=== PATIENT | male | born 1960 | race Caucasian/White ===

== ENCOUNTER 2019-03-10 08:29 | Day surgery (SDC) | payer BC, SELFPAY ==
[2019-03-09 09:29] VITALS: BMI 24.3
[2019-03-10] VITALS (7 sets, daily range): BP systolic 113–156; BP diastolic 73–99; PULSE 54–71; RESP 18; TEMP 36.3–36.5; O2SAT 96–98
--- NOTE | 2019-03-10 09:21 | ANES.PREANES ---
Pre-Anesthetic Assessment Pre-Anesthetic Assessment: Height/Weight: Height 1.78 m Weight 77.111 kg Proposed Procedure: Operation Date: 03/10/19 10:00 Proposed Procedures p Laparoscopic Adhesiolysis(Not Applicable) - Jae Mcclain MD Last intake: Intake Last Liquid Date 03/09/19 Last Liquid Time 21:00 Last Solid Date 03/09/19 Last Solid Time 21:00 Social: Social History: Alcohol (occ) and Tobacco (chews) Exam: Pre-Anes Outpt Exam: alert, oriented x 3, clear to auscultation bilaterally and regular rate & rhythm Airway: Submandibular: WNL Cervical ROM: WNL MP: 1 Pulmonary: Pulmonary: None reported CV/HEM: CV/HEM: None reported : : None reported Hepatic: Hepatic: None reported GI: GI: None reported Metabolic: Metabolic: None reported Musc/skel: Musc/skel: None reported Neuropsych: Neuropsych: None reported Anesthetic Plan: ASA status: II Anesthesia: Anesthesia Evaluation and General PFSH Anesthesia PFSH: Family History (Updated 03/09/19 @ 09:28 by Booker Azevedo LPN) Other Breast cancer Cancer Heart disease Hypertension Data Anesthesia Cardiac Studies: No Data to Display
[2019-03-10] MEDS: sodium chloride 0.9% 1,000 ML 30 ML IV (09:34)
--- NOTE | 2019-03-10 10:10 | P.OP_ITS ---
Operative Report Post-Operative Note: Date of procedure: 03/10/19 Preop Diagnosis: 1. Right lower quadrant pain.2. History of intra-abdominal adhesions. Post-op diagnosis: same ((with small indirect right inguinal hernia)) Procedure Done: Diagnostic laparoscopy. Pathology: none sent Surgeon: Jae Mcclain Anesthesia: general Estimated blood loss (mL): 5 Complications: None. Condition: stable Disposition: PACU Operative Report: Procedure: The patient was brought to the Operating Room and was placed in a supine position on the Operating Room table. General endotracheal anesthesia was induced. The abdomen was prepped and draped in a sterile fashion. A small vertical incision was carried out in the superior aspect of the u mbilicus. Blunt dissection was carried out down to the fascia, which was grasped with a Catalina clamp. A stay suture of 0 Vicryl was placed on either side of the midline and the midline fascia was incised. The underlying peritoneum was opened bluntly and the Srinivas port was placed directly into the peritoneal cavity and was held in place with the inflatable balloon. The peritoneal cavity was insuff lated with carbon dioxide. The laparoscope was used to inspect the abdominal cavity. No obvious adhesions were seen in the right lower quadrant. The patient was placed in Trendelenburg position and other than a small indirect inguinal hernia on the right side, no obvious abnormalities were seen. The decision was made to introduce another port and run the distal small bowel to make sure there were no abnormalities that were not being seen. A 5 mm port was placed in the left lower quadrant under direct vision. A laparoscopic Debbie was then used to run the distal small bowel from the ileocecal valve retrograde. This was done for a distance of approximately 3 feet and no obvious abnormalities were seen. The Rosas port was removed from the abdominal wall and the sutures of Vicryl we re tied to each other at the umbilicus. An additional suture of 0 Vicryl was placed, closing the fascial defect so that it was airtight. The remaining port was removed from the abdominal wall and the pneumoperitoneum was evacuated in the process. All skin incisions were closed using inverted interrupted sutures of 4-0 Vicryl. Benzoin and Steri-Strips were placed over the incisions and sterile Band-Aids followed. The patient was taken to the recovery room in stable condition postoperatively. 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
--- NOTE | 2019-03-10 10:47 | SUR.PHASEI ---
1018 PT TO PACU SLEEPY WITH GOOD RESP NOTED PT ON RA ABD SOFT BANDAIDS X 2 SITES D/I
--- NOTE | 2019-03-10 10:48 | SUR.PHASEI ---
1041PT ALERT TALKATIVE NO PAIN VOICED PT REQUESTS COKE TO SIP ON WANTS TO SEE FAMILY PT TO OPS AWAKE ALERT
== END 2019-03-10 12:00 | disposition home or self-care (01) ==
PROVIDERS: Family Provider Family Medicine; PCP Family Medicine; Referring Provider Family Medicine; Visit Provider Surgery
PROC: (CPT 49650; principal; 2019-03-10 10:00)
DX: K40.90 Unilateral inguinal hernia, without obstruction or gangrene, not specified as recurrent (principal); K66.0 Peritoneal adhesions (postprocedural) (postinfection); M19.90 Unspecified osteoarthritis, unspecified site; Z82.49 Family history of ischemic heart disease and other diseases of the circulatory system; F17.220 Nicotine dependence, chewing tobacco, uncomplicated
CPT/HCPCS: 49650; 99221; J0690; J1100; J1885; J2001; J2405; J2704; J2710; J3490; J7030

== ENCOUNTER → 2020-08-16 16:06 | Outpatient (BNVA) | payer BC, SELFPAY | PROVIDERS: Family Provider Family Medicine; PCP Family Medicine; Visit Provider Internal Medicine | DX: Z01.812 Encounter for preprocedural laboratory examination (principal); Z12.11 Encounter for screening for malignant neoplasm of colon; Z20.822 Contact with and (suspected) exposure to COVID-19 | CPT/HCPCS: 87635 ==

== ENCOUNTER 2020-08-20 09:56 | Day surgery (SDC) | payer BC, SELFPAY ==
--- NOTE | 2020-08-20 08:43 | P.HP_ITS ---
Same Day Surgery H&P Indication for Procedure/HPI DATE OF PROCEDURE: August 20, 2020 CHIEF COMPLAINT/INDICATIONFOR SURGICAL PROCEDURE: Esophageal dysphagia PREOP DIAGNOSIS: 1. Right lower quadrant pain.2. History of intra-abdominal adhesions. PLANNED PROCEDRUE: Operation Date: 08/20/20 11:00 Proposed Procedures p EGD Dilation W/ Bougie [id number] z12.11 r13.14(Not Applicable) - Goran Madrigal MD s Colonoscopy(Not Applicable) - Goran Madrigal MD Medications/Allergies* Home Medications Medication Instructions Recorded Confirmed Type No Known Home Medications 03/09/19 07/31/20 History Allergies/Adverse Reactions Allergy/AdvReac Type Severity Reaction Status Date / Time No Known Allergies Allergy Verified 07/31/20 13:08 Pertinent History/Comorbid Conditions* Family History (Updated 03/09/19 @ 09:28 by Booker Azevedo LPN) Heart disease Breast cancer Cancer Hypertension Social History Smoking and tobacco status: never smoked Adopted: No Marital status: Number of children: 2 service: No History of recent travel: No Pertinent Exam Findings alert, oriented x 3, clear to auscultation bilaterally, regular rate & rhythm, operative site marked and procedure specific exam findings Recommendations Surgery/Procedure today Coding Level of Care Code Acute [employer] for [employer]
--- NOTE | 2020-08-20 10:27 | ANES.PREANE2 ---
Pre-Anesthetic Assessment Pre-Anesthetic Assessment: Height/Weight: Height 1.78 m Preop Diagnosis: dysphagia and screening colon Proposed Procedure: Operation Date: 08/20/20 11:00 Proposed Procedures p EGD Dilation W/ Bougie [id number] z12.11 r13.14(Not Applicable) - Goran Madrigal MD s Colonoscopy(Not Applicable) - Goran Madrigal MD Was Beta Alfredo taken within 24 hours: N/A Was Clonidine taken within 24 hours: N/A Social: Social History: Tobacco (Chews) and No alcohol Exam: Pre-Anes Outpt Exam: alert, oriented x 3, clear to auscultation bilaterally and regular rate & rhythm Airway: Submandibular: WNL Cervical ROM: WNL MP: 2 Additional comments: missing several GI: Comments: dysphagia Anesthetic Plan: ASA status: 2 Anesthesia: MAC Risk of > 500 ml blood loss (7ml/kg in children): No PFSH Anesthesia PFSH: Family History Other Breast cancer Cancer Heart disease Hypertension Social History (Updated 07/31/20 @ 13:[address]) Smoking and tobacco status: never smoked Adopted: No Marital status: Number of children: 2 service: No History of recent travel: No Data Anesthesia Cardiac Studies: No Data to Display
[2020-08-20 10:44] VITALS: BP 131/79; PULSE 83; RESP 18; TEMP 36.3; O2SAT 99; BMI 24.3
[2020-08-20] MEDS: sodium chloride 0.9% 1,000 ML 30 ML IV ×2 (11:36→12:43)
[2020-08-20 13:05] VITALS: BP 121/84; PULSE 71; RESP 18; TEMP 36.1; O2SAT 97
[2020-08-20 13:18] VITALS: BP 130/93; PULSE 69; RESP 18; O2SAT 96
--- NOTE | 2020-08-20 13:36 | ANE.PACU2 ---
Inpatient post-anesthesia follow up: Airway intact: Yes Vital signs: Temperature 97.0 F Pulse Rate 69 Respiratory Rate 18 Blood Pressure 130/93 Pulse Oximetry 96 Oxygen Delivery Me thod Room Air Oxygen Flow Rate Fraction of Inspir ed Oxygen Hydration adequate: Yes Nausea and vomiting: No Pain level: 1 Mental status: Baseline
[2020-08-21 08:43] LABS: H. Pylori / CLO Test Negative
== END 2020-08-20 13:37 | disposition home or self-care (01) ==
PROVIDERS: PCP Family Medicine; Visit Provider Internal Medicine
PROC: 0DJD8ZZ Inspection of Lower Intestinal Tract, Via Natural or Artificial Opening Endoscopic (ICD-10-PCS; CPT 45378; 2020-08-20 11:00)
PROC: 0DJ08ZZ Inspection of Upper Intestinal Tract, Via Natural or Artificial Opening Endoscopic (ICD-10-PCS; CPT 43235; 2020-08-20 11:00)
DX: Z12.11 Encounter for screening for malignant neoplasm of colon (principal); R13.14 Dysphagia, pharyngoesophageal phase; K52.9 Noninfective gastroenteritis and colitis, unspecified; K22.2 Esophageal obstruction; K21.00 Gastro-esophageal reflux disease with esophagitis, without bleeding; K44.9 Diaphragmatic hernia without obstruction or gangrene; K29.70 Gastritis, unspecified, without bleeding; Z82.49 Family history of ischemic heart disease and other diseases of the circulatory system; Z80.3 Family history of malignant neoplasm of breast; F17.220 Nicotine dependence, chewing tobacco, uncomplicated
CPT/HCPCS: 43239; 45380; 87077; 88305; 96360; J2704; J7030